=== PATIENT | female | born 1975 ===

== ENCOUNTER 2023-02-03 08:37 | Day surgery (SDC) | payer BC ==
[~2023-02-03] VITALS: Ht 162.6 cm; Wt 70.8 kg
[2023-02-03] MEDS ORDERED: Amlodipine Bes2.5 MG (09:06)
[2023-02-03] MEDS ORDERED: ATEN25 (09:06)
[2023-02-03] MEDS ORDERED: EUTHYROX125 MC1 (09:06)
[2023-02-03 11:14] VITALS: BP 136/88
== END 2023-02-03 11:13 | disposition home or self-care (01) ==
LOC: ORSCSDS 08:37
PROVIDERS: Internal Medicine Gastroenterology
PROC: 0DBH8ZX Excision of Cecum, Via Natural or Artificial Opening Endoscopic, Diagnostic (ICD-10-PCS; principal; 2023-02-03 09:45)
PROC: 0DBN8ZX Excision of Sigmoid Colon, Via Natural or Artificial Opening Endoscopic, Diagnostic (ICD-10-PCS; principal; 2023-02-03 09:45)
DX: Z12.11 Encounter for screening for malignant neoplasm of colon (principal); Z80.0 Family history of malignant neoplasm of digestive organs; D12.5 Benign neoplasm of sigmoid colon; D12.0 Benign neoplasm of cecum; K57.30 Diverticulosis of large intestine without perforation or abscess without bleeding; E03.9 Hypothyroidism, unspecified; Z79.899 Other long term (current) drug therapy
CPT/HCPCS: 88305; J2704; J7120

== ENCOUNTER → 2025-01-13 | Outpatient (CLI) | payer BC ==
[~2025-01-13] MED LIST: ATEN25; Amlodipine Bes2.5 MG; EUTHYROX125 MC1
[2025-01-13 21:46] LABS: Bun/Creatinine Ratio 12.7 (12.0-20.0); Calcium, Blood 9.6 mg/dL (8.5-10.1); Creatinine, Blood 0.63 mg/dL (0.40-1.00); Free Thyroxine 1.33 ng/dL (0.70-1.60); Potassium, Blood 3.6 mmol/L (3.5-5.5); Thyroid Stimulating Hormone 0.151 uIU/mL (0.360-4.800)
== END ==
LOC: LAB 17:39 → LAB SHORT 17:39
PROVIDERS: Hospitalist
DX: E03.9 Hypothyroidism, unspecified (principal); I10 Essential (primary) hypertension
CPT/HCPCS: 80048; 84439; 84443